=== PATIENT | male | born 1965 | race Caucasian/White ===

== ENCOUNTER 2016-05-14 07:49 | Observation (INO) | payer BC ==
[2016-05-14] MEDS ORDERED: Aspirin Low Dose CHEW TAB* 81 MG PO ONE (08:04)
[2016-05-14 08:23] LABS: Hematocrit 45 % (42-52); Hemoglobin 15.2 g/dl (14.0-18.0); Mean Corpuscular HGB Conc 34 g/dl (31-36); Mean Corpuscular Hemoglobin 30 pg (27-31); Mean Corpuscular Volume 88 fL (80-94); Mean Platelet Volume 7 um3 (7.4-10.4); Red Blood Count 5.05 10^6/ul (4.0-5.4); Red Cell Distribution Width 13 % (10.5-15)
[2016-05-14 08:39] LABS: Albumin 4.4 g/dL (3.2-5.2); BUN/Creatinine Ratio 17.4 (8-20); Calcium 9.5 mg/dL (8.6-10.3); EGFR African American 91.4 (>60); Globulin 3.2 g/dL (2-4); Potassium 3.7 mmol/L (3.5-5.0); Total Bilirubin 0.6 mg/dL (0.2-1.0); Total Protein 7.6 g/dL (6.4-8.9)
[2016-05-14 08:40] LABS: Troponin I 0.01 ng/mL (<0.04)
--- NOTE | 2016-05-14 08:47 | RAD ---
HISTORY: Chest pain COMPARISONS: December 04, 2010 VIEWS: 2: Frontal dual-energy and lateral views of the chest. FINDINGS: CARDIOMEDIASTINAL SILHOUETTE: The cardiomediastinal silhouette is normal. CHARI: The chari are normal. PLEURA: The costophrenic angles are sharp. No pleural abnormalities are noted. LUNG PARENCHYMA: The lungs are clear. ABDOMEN: The upper abdomen is clear. There is no subphrenic gas. BONES AND SOFT TISSUES: No bone or soft tissue abnormalities are noted. OTHER: None. IMPRESSION: NO ACTIVE CARDIOPULMONARY DISEASE.
[2016-05-14] MEDS ORDERED: Nitroglycerin TAB 0.4 MG* 0.4 MG TAB SL ONE (09:28)
[2016-05-14] MEDS ORDERED: Temazepam CAP* 15 MG PO PRN (12:31)
[2016-05-14] MEDS ORDERED: Al Hydrox/Mg Hydrox/Simet LIQ* 30 ML UDC PO PRN (12:31)
--- NOTE | 2016-05-14 15:27 | HP ---
HISTORY AND PHYSICAL: DATE OF ADMISSION: 05/14/16 PRIMARY CARE PHYSICIAN: Dr. Agustin. CHIEF COMPLAINT: Chest pain. HISTORY OF PRESENT ILLNESS: Desean Blanco is a 51-year-old male with history of dyslipidemia, who presents complaining of chest pain. When further evaluated, the patient stated that he actually complains of "nonspecific discomfort" in the left rib cage. He stated that there was no point tenderness, but it is "deep within." He had been having those pains off and on for several years. He had a stress test that was negative several years ago also. He stated that he spoke with Dr. Agustin about it and thought that could have been GI related. Currently, the patient is chest pain free. The patient stated that today in the middle of the night, he woke up with a short episode of shortness of breath. The patient stated that in retrospect, he thinks that he probably had been startled by something which happens frequently at night. That resolved and he drifted off to asleep. He did not have chest pain then. In the morning, he woke up and he exercised in a treadmill for 30 minutes without any complaints of chest pain or shortness of breath. After the treadmill, he started developing the discomfort. The discomfort was not related to exercise and was not pleuritic. He came into the hospital complaining of the same discomfort and that was relieved by nitroglycerin. His EKG is unremarkable. He is going to be placed on overnight observation, a stress test in the morning if his troponins continued to be negative. PAST MEDICAL HISTORY: History of dyslipidemia. PAST SURGICAL HISTORY: History of tonsillectomy as a child. MEDICATIONS: Include simvastatin 40 mg daily. ALLERGIES: PENICILLIN. FAMILY HISTORY: Positive for mother with history of obesity and hypertension. Father secondary to lung cancer at the age of 60. SOCIAL HISTORY: The patient denies tobacco or drug use. He drinks alcohol occasionally. He is an junior staff accountant and he lives with his , who would be his surrogate, her first name is Celena. REVIEW OF SYSTEMS: Please see history of present illness. The patient stated that he has good exercise tolerance and he exercises on a treadmill almost on a daily basis without any problems with exercise intolerance. He had been in his usual state of health for the past several weeks, apart from that his work had been stressful, since as an junior staff accountant, he has to balance his books at the end of the year. All the remaining 14 systems were reviewed with the patient and were otherwise negative. PHYSICAL EXAMINATION GENERAL: The patient is a very pleasant 51-year-old male, who is in no acute distress. Alert, awake, oriented x3. VITAL SIGNS: Blood pressure of 131/81, heart rate of 88 and regular, respiratory rate 18, oxygen saturation 98% on room air, temperature of 98.0. HEENT: Head: Atraumatic, normocephalic. Eyes: Pupils are equal, round, and reactive to light and accommodation. Oropharynx clear. Mucosa moist. NECK: Supple. No JVD. No bruit bilaterally. RESPIRATORY: Clear to auscultation bilaterally. CARDIOVASCULAR: Regular rate and rhythm. No murmur. ABDOMEN: Soft, nontender. Bowel sounds are present in all 4 quadrants. EXTREMITIES: There is no edema. Pulses +2 bilaterally. No clubbing or cyanosis. NEURO: Speech is clear. Cranial nerves II through XII are grossly intact. Motor strength is 5/5 bilaterally. PSYCHIATRIC: Alert and oriented x3, with no evidence of anxiety or depression. SKIN: On evaluation of the skin, no ecchymotic areas or rashes noted. DIAGNOSTIC STUDIES/LAB DATA: Showed white blood cell count of 8.0, hemoglobin of 15.2, hematocrit of 45 Sodium was 136, chloride 100, carbon dioxide 36, BUN 19, creatinine 1.09. Liver functions were unremarkable. Troponin of 0.01 x2. Portable chest x-ray, impression: "No active cardiopulmonary disease." EKG showed sinus tachycardia with a heart rate of 100 beats a minute with 2 PVCs and no significant ST changes comparing with an EKG from 2011. ASSESSMENT AND PLAN: A 51-year-old male with history of dyslipidemia, who presents with somewhat atypical chest pain that did not occur during exercise. The patient in fact has a pretty good exercise tolerance. Nevertheless, he is going to be observed in telemetry monitored bed with a plan for stress test in the morning. His serial troponins are going to be followed. For his dyslipidemia, his simvastatin is going to be continued and fasting lipid profile is going to be obtained in the morning. For DVT prophylaxis, the patient is low risk and ambulation is going to be encouraged. TIME SPENT: Approximately 55 minutes was spent on admission of this patient, more than half the time was spent [id number] with the patient during the interview and physical exam. CC: Dr. Agustin* [id number]/CPS #: [id number] SHELLEY
[2016-05-14] MEDS: Acetaminophen TAB* 325 MG PO PRN (17:58)
[2016-05-14] MEDS ORDERED: Atorvastatin* 20 MG TAB PO SCH (18:00)
[2016-05-15] MEDS: Acetaminophen TAB* 325 MG PO PRN (06:31)
--- NOTE | 2016-05-15 11:32 | RAD ---
Edited for charges. Indication: Chest pain. Myocardial perfusion scan was performed utilizing 1 day protocol. 10.7 mCi of technetium 99m tetrofosmin was injected for the rest portion of the study. Exercise stress study was performed with the maximum heart rate achieved being 98% maximum predicted value. 26.8 mCi of technetium 99m tetrofosmin was injected for the stress portion of the study. There is homogeneous distribution of the radiotracer throughout the left ventricle. There is no definite fixed or reversible perfusion defects identified. Ejection fraction at stress is 60% without evidence of any focal wall motion abnormality. IMPRESSION: No evidence of fixed or reversible perfusion defect is identified with normal ejection fraction. ASSESSMENT: Low risk Based on imaging criteria from ACC/AHA 2002 Guideline Update for the Management of Patients With Chronic Stable Angina Table 23. Noninvasive Risk Stratification. MTDD
[2016-05-15 11:39] VITALS: BP 127/64
--- NOTE | 2016-05-16 07:18 | DS ---
DISCHARGE SUMMARY: DATE OF ADMISSION: 05/14/16 DATE OF DISCHARGE: 05/15/16 PRIMARY CARE PHYSICIAN: Dr. Agustin. DISCHARGE DIAGNOSES: Chest pain, most likely related to GI source. SECONDARY DIAGNOSIS: Dyslipidemia. MEDICATIONS AT DISCHARGE: Unchanged from admission and that is simvastatin 40 mg daily. LABORATORY DATA: During the hospital stay included troponin of 0.01 and 0.02. Triglycerides were 103, cholesterol total 189, LDL 121 and HDL 47. Cardiac stress test obtained on the day of discharge. Impression: "No evidence of fixed or reversible perfusion defect is identified with normal ejection fraction." HOSPITALIZATION COURSE: Desean Blanco is a 51-year-old female with a history of dyslipidemia who presented complaining of chest pain that occurred after exercise on treadmill. The patient has good exercise tolerance and he exercises on the treadmill almost on a daily basis. Nevertheless, he was observed on telemetry monitored bed. During his monitoring at night, he was noted to have asymptomatic occasional missed beat. His OH interval was not decreased and there was no evidence an AV block. Throughout the day, that decreased in frequency and in fact the patient had no sinus pauses in the past several hours. Once again, he had been asymptomatic from this standpoint and hemodynamically stable. His treadmill cardiac stress test with Nuclear Medicine imaging was unremarkable as mentioned above. The patient is going to be discharged home to follow up with his primary care provider . He still occasionally had discomfort in the left upper quadrant of the abdomen and left lower chest, most likely GI related. I advised him to take [id number] antacids and to observe his diet to no low acidity and no spicy foods. I also advised the patient to limit his caffeine intake. The patient's LDL was noted to be 120. I referred the patient back to his primary care provider with further recommendations if his medications need to adjusted. For the time being, he does not have an evidence of coronary artery disease. Physical examination at the time of discharge is unchanged from admission. Please note that this is a short summary of the patient's hospital stay. Please refer to further medical records for details. CC: Dr. Agustin* [id number]/CPS #: [id number] MTDD
--- NOTE | 2016-05-16 11:42 | ED ---
Julisa Kelley Adam, scribed for Tray Bashir MD on 05/14/16 at 0820 . HPI Chest Pain - HPI Summary HPI Summary: A 51 y/o male presents to the ED with chest pain that he rates as 2/10 and describes as "tight". Last night, he woke up startled by a noise with tachycardia and went back to sleep. This morning, he states "not feeling right" after exercising for 25 minutes (cardio) at 06:30 this morning. He did feel normal during exercise. Patient denies pain with inspiration, dizziness, or lightheadedness. PMHx is positive for hyperlipidemia. FHx is negative for cardiac disease. Alcohol use is weekly and he denies tobacco use. - History of Current Complaint Chief Complaint: EDChestPainROMI Time Seen by Provider: 05/14/16 08:04 Hx Obtained From: Patient Onset/Duration: Started Hours Ago - 9 hours Timing: Constant Initial Severity: Mild Current Severity: Mild Pain Intensity: 2 Pain Scale Used: 0-10 Numeric Chest Pain Location: Left Anterior Chest Pain Radiates: Yes Chest Pain Radiates To:: Shoulder - Left Aggravating Factor(s): Exertion - 25 minutes of cardio exercise this morning. Discomfort after exercise. Alleviating Factor(s): Nothing Associated Signs and Symptoms: Positive: Chest Pain - "tightness", Recent Stress - Work, Other: - Left shoulder/arm pain. Negative: Dizziness, Lightheadedness - Allergy/Home Medications Allergies/Adverse Reactions: Allergies Allergy/AdvReac Type Severity Reaction Status Date / Time Penicillins [PCN] Allergy Shortness Verified 05/14/16 08:12 of Breath Home Medications: Home Medications Simvastatin [Zocor 40 MG (NF)] 40 mg PO QPM 05/14/16 [History Confirmed 05/14/16 ] PMH/Surg Hx/FS Hx/Imm Hx Endocrine/Hematology History: Denies: Hx Diabetes Cardiovascular History: Reports: Hx Hypercholesterolemia Infectious Disease History: No Infectious Disease History: Denies: Traveled Outside the [place] in Last 30 Days - Family History Known Family History: Negative: Cardiac Disease - Social History Occupation: Employed Full-time Lives: With Family Alcohol Use: Weekly Substance Use Type: Reports: None Hx Tobacco Use: No Review of Systems Constitutional: Negative Negative: Fever, Chills Eyes: Negative Negative: Erythema ENT: Negative Negative: Sore Throat Positive: Chest Pain - "tightness" Respiratory: Negative Negative: Shortness Of Breath, Cough Gastrointestinal: Negative Negative: Abdominal Pain, Vomiting, Nausea Genitourinary: Negative Negative: dysuria, hematuria Positive: Arthralgia - Left shoulder pain. Negative: Myalgia Skin: Negative Negative: Rash Neurological: Negative, Other - Negative: Dizziness, lightheadedness Psychological: Normal All Other Systems Reviewed And Are Negative: Yes Physical Exam - Summary Physical Exam Summary: Constitutional: Well-developed, Well-nourished, Alert. (-) Distressed Skin: Warm, Dry HENT: Normocephalic; Atraumatic Eyes: Conjunctiva normal Neck: Musculoskeletal ROM normal neck. (-) JVD, (-) Stridor, (-) Tracheal deviation Cardio: Rhythm regular, rate normal, Heart sounds normal; Intact distal pulses; The pedal pulses are 2+ and symmetric. Radial pulses are 2+ and symmetric. (-) Murmur Pulmonary/Chest wall: Effort normal. (-) Respiratory distress, (-) Wheezes, (-) Rales Abd: Soft, (-) Tenderness, (-) Distension, (-) Guarding, (-) Rebound Musculoskeletal: (-) Edema Lymph: (-) Cervical adenopathy Neuro: Alert, Oriented x3 Psych: Mood and affect Normal Vital Signs On Initial Exam: Initial Vitals Temp Pulse Resp BP Pulse Ox 98.0 F 102 18 163/89 100 05/14/16 08:02 05/14/16 08:02 05/14/16 08:02 05/14/16 08:02 05/14/16 08:02 Diagnostics - Vital Signs Vital Signs Temp Pulse Resp BP Pulse Ox 05/14/16 08:02 98.0 F 102 18 163/89 100 - Laboratory Result Diagrams: 05/14/16 08:10 05/14/16 08:10 Lab Statement: Any lab studies that have been ordered have been reviewed, and results considered in the medical decision making process. - Radiology CXR Xray Interpretation: No Acute Changes Radiology Interpretation Completed By: Radiologist - EKG 07:53 Cardiac Rate: Tachycardia - 100 EKG Rhythm: Sinus Tachycardia EKG Interpretation: no STEMI Chest Pain Course/Dx - Diagnoses Provider Diagnoses: Chest pain, unspecified - Provider Notifications Discussed Care Of Patient With: Dr. Yarbrough (Hospitalist, 10:35) - Agrees to accept patient Discharge - Discharge Plan Condition: Stable Disposition: ADMITTED TO [facility] documentation as recorded by the Julisa crain Adam accurately reflects the service I personally performed and the decisions made by me, Tray Bashir MD.
== END 2016-05-15 12:40 | disposition home or self-care (01) ==
LOC: ED 07:49 → MEDTELE 10:41
PROVIDERS: ADMIT Internal Medicine; ATTEND Internal Medicine
DX: R07.9 Chest pain, unspecified (principal); E78.5 Hyperlipidemia, unspecified; Z88.0 Allergy status to penicillin; R06.02 Shortness of breath; R00.0 Tachycardia, unspecified
CPT/HCPCS: 36415; 71020; 78452; 80053; 80061; 84484; 85025; 87641; 93005; 93017; 99284; A9270-GY; A9502; G0378

== ENCOUNTER 2018-07-19 14:34 | Emergency (ER) | payer BC ==
--- NOTE | 2018-07-19 14:45 | UC ---
Throat Pain/Nasal Sergio HPI - HPI Summary HPI Summary: 53 yo male presents with cough. He tells me that about a week ago he developed sinus congestion, fatigue, fever, and dry cough. [facility] and was placed on ceftin. He has been taking this and his other symptoms have improved, but he is most concerned because his cough seems worse. Cough is non-productive and worse at bedtime. Denies fever, chills, sore throat, SOB, chest pain, abdominal pain, n/v. - History of Current Complaint Stated Complaint: SORE THROAT Time Seen by Provider: 07/19/18 14:45 Hx Obtained From: Patient Onset/Duration: Gradual Onset Severity: Mild Pain Intensity: 3 Pain Scale Used: 0-10 Numeric Cough: Nonproductive - Allergies/Home Medications Allergies/Adverse Reactions: Allergies Allergy/AdvReac Type Severity Reaction Status Date / Time Penicillins Allergy Unknown Verified 07/19/18 14:52 Reaction Details PMH/Surg Hx/FS Hx/Imm Hx Endocrine History: Dyslipidemia - Surgical History Surgical History: Yes Surgery Procedure, Year, and Place: tonsills, colonoscopy - Family History Known Family History: Negative: Cardiac Disease - Social History Occupation: Employed Full-time Lives: With Family Alcohol Use: Weekly Substance Use Type: None Smoking Status (MU): Never Smoked Tobacco Review of Systems All Other Systems Reviewed And Are Negative: Yes Constitutional: Positive: Negative Skin: Positive: Negative Eyes: Positive: Negative ENT: Positive: Negative Respiratory: Positive: Cough Cardiovascular: Positive: Negative Gastrointestinal: Positive: Negative Neurovascular: Positive: Negative Neurological: Positive: Negative Psychological: Positive: Negative Physical Exam - Summary Physical Exam Summary: GENERAL: NAD. WDWN. No pain distress. SKIN: No rashes, sores, lesions, or open wounds. HEENT: Head: AT/NC Eyes: EOM intact. Conjunctiva clear without inflammation or discharge. Ears: Hearing grossly normal. TMs intact, no bulging, erythema, or edema. Nose: Nasal mucosa pink and moist. NTTP maxillary and frontal sinus. Throat: Posterior oropharynx without exudates, erythema, or tonsillar enlargement. Uvula midline. NECK: Supple. Nontender. No lymphadenopathy. CHEST: CTAB. No r/r/w. No accessory muscle use. Breathing comfortably and in no distress. CV: RRR. Without m/r/g. Pulses intact. Cap refill <2seconds NEURO: Alert. PSYCH: Age appropriate behavior. Triage Information Reviewed: Yes Vital Signs: Vital Signs: Temp Pulse Resp BP Pulse Ox 97.8 F 102 16 142/91 100 07/19/18 14:44 07/19/18 14:44 07/19/18 14:44 07/19/18 14:44 07/19/18 14:44 Laboratory Tests 07/19/18 15:00 Influenza A (Rapid) Negative Influenza B (Rapid) Negative Vital Signs Reviewed: Yes Throat Pain/Nasal Course/Dx - Course Course Of Treatment: Suspect irritant cough. Will rx for tessalon and cough syrup at bedtime. Advised to f/u with PCP if symptoms do not improve. - Differential Dx/Diagnosis Provider Diagnosis: Cough Discharge - Sign-Out/Discharge Documenting (check all that apply): Patient Departure All imaging exams completed and their final reports reviewed: No Studies - Discharge Plan Condition: Stable Disposition: HOME Prescriptions: Benzonatate CAP* [Tessalon 100 MG CAP*] 100 mg PO TID PRN #21 cap PRN Reason: Cough Codeine Phosphate/Guaifenesin [Guaifen-Codeine 100-10 mg/5 ml] 5 ml PO BEDTIME PRN #35 ml MDD 5mL PRN Reason: Cough Patient Education Materials: Acute Cough (ED) Referrals: Tony Agustin MD [Primary Care Provider] - Additional Instructions: If you develop a fever, shortness of breath, chest pain, new or worsening symptoms - please call your PCP or go to the ED. Your blood pressure was high at todays visit. Please see your primary provider within 4 weeks for recheck and re-evaluation. - Billing Disposition and Condition Condition: STABLE Disposition: Home
[2018-07-19 14:51] VITALS: BP 142/91
[2018-07-19 15:12] LABS: Influenza A Molecular NEGATIVE (Negative); Influenza B Molecular NEGATIVE (Negative)
== END 2018-07-19 15:20 | disposition home or self-care (01) ==
LOC: UCEAST 14:34
DX: R05 Cough (principal); Z88.0 Allergy status to penicillin; J02.9 Acute pharyngitis, unspecified
CPT/HCPCS: 99212; G0463

== ENCOUNTER 2022-07-18 05:47 | Observation (INO) ==
[~2022-07-18 05:47] MED LIST: Acetaminophen IV 1 GM/100ML 1,000 MG/100 ML BAG IV ONE; Dexamethasone IV 4 MG/ML VIAL 1 ml VIAL ONE; Metoclopramide 5 MG/ML VIAL (10 mg) ONE; Ondansetron 4 mg VIAL 2 MG/ML 2 ml VIAL ONE; Propofol 10 MG/ML 20 ML BTL ONE; Remifentanil 2 MG VIAL ONE; Rocuronium 50 mg VIAL 10 mg/ml 5 ml VIAL (50 mg) ONE; Succinylcholine 200 mg VIAL 20 mg/ml 10 ml VIAL (200 mg) ONE
[2022-07-18] MEDS ORDERED: Buffered Lidocaine 1% SYRIN 1 ml INTRADERM ONE (06:00)
[2022-07-18] MEDS ORDERED: Lactated Ringers 1000 ml BAG 1,000 ML IV SCH (06:00)
[2022-07-18] MEDS ORDERED: Lidocaine 1% w EPI 1:100,000 MDV 20 ML VIAL ONE (07:11)
[2022-07-18] MEDS ORDERED: Prochlorperazine 5 mg/ml 2 ml VIAL (10 mg) IV PRN (07:20)
[2022-07-18] MEDS ORDERED: fentaNYL 100 mcg/2 ml 50 MCG/ML VIAL IV PRN (07:20)
[2022-07-18] MEDS ORDERED: Naloxone 0.4 mg VIAL 0.4 mg/ml 1 ml VIAL IV PRN (07:20)
[2022-07-18] MEDS ORDERED: Propofol 10 MG/ML 20 ML BTL ONE ×4 (08:01→11:19)
[2022-07-18] MEDS ORDERED: Remifentanil 2 MG VIAL ONE (09:54)
[2022-07-18] MEDS ORDERED: oxyCODONE/Acetamin 5/325 mg TAB PO PRN (13:17)
[2022-07-18] MEDS ORDERED: oxyCODONE 5 mg/5 ml ORAL.SOLN UDC ONE (13:39)
[2022-07-18] MEDS ORDERED: Enoxaparin 40 MG/0.4 ML SYR SUBCUT SCH (14:00)
[2022-07-18] MEDS: Calcium Carb (TUMS) 500 mg CHEW TAB PO SCH ×3 (15:02→22:02)
[2022-07-18] MEDS ORDERED: oxyCODONE 5 mg/5 ml ORAL.SOLN UDC PO PRN ×2 (15:07)
[2022-07-18] MEDS ORDERED: Ondansetron ODT 4 mg TAB 4 MG TAB PO PRN (15:15)
[2022-07-18] MEDS ORDERED: Ondansetron 4 mg VIAL 2 MG/ML 2 ml VIAL IV PRN (15:16)
[2022-07-18] MEDS ORDERED: Ibuprofen ADULT LIQ 600 MG/30 ML UDC PO PRN (16:00)
[2022-07-18] MEDS ORDERED: Calcium Carb (TUMS) 500 mg CHEW TAB PO SCH (17:00)
[2022-07-19 04:16] LABS: ABS Lymphocytes 1.4 10^3/ul (1.0-4.8); ABS Monocytes 0.9 10^3/ul (0-0.8); Eosinophil % 0.2 %; Hematocrit 38 % (42-52); Hemoglobin 12.7 g/dL (14.0-18.0); Lymphocyte % 13.4 %; Mean Corpuscular HGB Conc 34 g/dL (31-36); Mean Corpuscular Hemoglobin 31 pg (27-31); Mean Corpuscular Volume 91 fL (80-94); Mean Platelet Volume 7.4 fL (7.4-10.4); Nucleated Red Blood Cells % 0.1; Platelet Count 236 10^3/uL (150-450); Red Blood Count 4.14 10^6 /uL (4.18-5.48); Red Cell Distribution Width 13 % (10-15); White Blood Count 10.3 10^3/uL (3.5-10.8)
[2022-07-19 04:40] LABS: Calcium 9.1 mg/dL (8.6-10.3); Creatinine, Serum 1.07 mg/dL (0.67-1.17); Potassium 4.3 mmol/L (3.5-5.0); eGFR CKD-EPI 80.4 (>60)
[2022-07-19] MEDS: Calcium Carb (TUMS) 500 mg CHEW TAB PO SCH ×2 (05:35→09:01)
[2022-07-19 08:19] VITALS: BP 166/92
== END 2022-07-19 11:10 | disposition home or self-care (01) ==
LOC: SSU 05:47 → OR 05:47
PROVIDERS: ADMIT Otolaryngology; ATTEND Otolaryngology